=== PATIENT | male | born 1995 | race Caucasian/White ===

== ENCOUNTER 2023-09-21 15:23 | Emergency (ER) | payer OTHER ==
[~2023-09-21] VITALS: Ht 157.5 cm; Wt 86.4 kg
[2023-09-21] MEDS ORDERED: MIRT1TAB16 PO (15:39)
[2023-09-21] MEDS ORDERED: QUET150T14 PO (15:39)
[2023-09-21] MEDS ORDERED: BANO25TA PO (15:39)
[2023-09-21] MEDS ORDERED: PROP10TA56 PO (15:39)
[2023-09-21] MEDS ORDERED: ESCI5SOL3 PO (15:39)
[2023-09-21] MEDS: KETOROLAC 60MG 2ML VIAL IM ONE (17:09)
[2023-09-21] MEDS: LIDOCAINE 5% (LIDODERM) PATCH TD ONE (17:09)
[2023-09-21] MEDS ORDERED: KETO10TAB PO (19:42)
[2023-09-21] MEDS ORDERED: LIDO5DIS41 TOP (19:42)
[2023-09-21 20:15] VITALS: BP 144/78; TEMP 97.3; O2SAT 96
== END 2023-09-21 20:19 | disposition home or self-care (01) ==
LOC: M ED 15:23
DX: M54.50 Low back pain, unspecified (principal); E11.9 Type 2 diabetes mellitus without complications; F17.210 Nicotine dependence, cigarettes, uncomplicated; F15.10 Other stimulant abuse, uncomplicated; Z88.0 Allergy status to penicillin; Z79.899 Other long term (current) drug therapy
CPT/HCPCS: 72110; 96372; 99283; J1885

== ENCOUNTER 2023-09-22 10:59 | Emergency (ER) | payer OTHER ==
[~2023-09-22] VITALS: Ht 177.8 cm; Wt 81.8 kg
[~2023-09-22 10:59] MED LIST: BANO25TA PO; ESCI5SOL3 PO; KETO10TAB PO; LIDO5DIS41 TOP; MIRT1TAB16 PO; PROP10TA56 PO; QUET150T14 PO
[2023-09-22] MEDS: NS 1,000 ML IV ONE (13:39)
[2023-09-22 14:44] LABS: BASO % 0.6 % (0.0-1.0); EOS # 0.2 10^3/uL (0.0-0.5); EOS % 4.8 % (0.0-3.0); HEMOGLOBIN 11.4 g/dl (13.5-17.5); LYMPH # 1.3 10^3/uL (1.5-5.0); LYMPH % 39.3 % (24.0-44.0); MEAN CORPUSCULAR HGB CONC 33.5 g/dl (32.0-36.5); MEAN CORPUSCULAR VOLUME 92.4 fl (80.0-96.0); MONO # 0.3 10^3/uL (0.0-0.8); MONO % 9.8 % (2.0-8.0); NEUTROPHILS # 1.5 10^3/uL (1.5-8.5); NEUTROPHILS % 45.5 % (36.0-66.0); RED BLOOD COUNT 3.68 10^6/uL (4.30-6.10); WHITE BLOOD COUNT 3.4 10^3/uL (4.0-10.0)
[2023-09-22 14:57] LABS: PLATELET COUNT, AUTOMATED 93 10^3/uL (150-450)
[2023-09-22 15:17] LABS: ALBUMIN 2.3 G/DL (3.2-5.2); ALKALINE PHOSPHATASE 200 U/L (46-116); ALT/SGPT 268 U/L (7.0-40); AST/SGOT 446 U/L (<34); BILIRUBIN,DIRECT 0.7 MG/DL (<0.4); BILIRUBIN,TOTAL 1.3 MG/DL (0.3-1.2); BLOOD UREA NITROGEN 15 MG/DL (9-23); CALCIUM LEVEL 7.6 MG/DL (8.5-10.1); CARBON DIOXIDE LEVEL 29 MMOL/L (20-31); CHLORIDE LEVEL 107 MMOL/L (98-107); CK-MB VALUE MASS 2.7 NG/ML (<3.6); CREATININE FOR GFR 0.59 MG/DL (0.70-1.30); GLOMERULAR FILTRATION RATE > 60.0 (>60); GLUCOSE, FASTING 99 MG/DL (60-100); POTASSIUM SERUM 4.5 MMOL/L (3.5-5.1); SODIUM LEVEL 140 MMOL/L (136-145); TOTAL PROTEIN 6.2 G/DL (5.7-8.2)
[2023-09-22 15:29] LABS: ETHYL ALCOHOL (ETHANOL) 0.003 % (0.000-0.010)
[2023-09-22 15:31] LABS: CPK CREATINE PHOSPHOKINASE 301 U/L (46-171); MB/CK RELATIVE INDEX 0.89 (< OR =4)
[2023-09-22 16:03] LABS: BARBITURATES URINE NEGATIVE (NEGATIVE); BENZODIAZEPINES URINE NEGATIVE (NEGATIVE); COCAINE METABOLITE URINE NEGATIVE (NEGATIVE); METHADONE URINE NEGATIVE (NEGATIVE); OPIATES URINE NEGATIVE (NEGATIVE); PHENCYCLIDINE URINE NEGATIVE (NEGATIVE)
[2023-09-22 16:04] LABS: AMPHETAMINES LEVEL URINE POSITIVE (NEGATIVE); CANNABINOIDS URINE POSITIVE (NEGATIVE)
[2023-09-22] MEDS: PANTOPRAZOLE 40MG VIAL IV ONE (16:16)
[2023-09-22 16:49] LABS: INR 1.39; PROTHROMBIN TIME 16.7 SECONDS (12.5-14.5)
[2023-09-22 16:50] LABS: PARTIAL THROMBOPLASTIN TIME 39.5 SECONDS (24.8-34.2)
[2023-09-22 17:18] VITALS: BP 126/68; TEMP 98.1; O2SAT 94
== END 2023-09-22 17:25 | disposition short-term general hospital (02) ==
LOC: M ED 10:59 → EDBD 10:59 → M ED 17:25
DX: F19.10 Other psychoactive substance abuse, uncomplicated (principal); Z88.0 Allergy status to penicillin; I45.81 Long QT syndrome; Z79.899 Other long term (current) drug therapy; Z79.2 Long term (current) use of antibiotics
CPT/HCPCS: 71045; 80048; 80076; 80307; 82077; 82550; 82553; 83690; 85025; 85049; 85055; 85610; 85730; 93005; 93041; 94760; 96374; 99285; C9113

== ENCOUNTER 2023-11-22 09:02 | Inpatient (IN) | payer OTHER ==
[~2023-11-22] VITALS: Ht 177.8 cm; Wt 90.8 kg
[2023-11-22 10:11] LABS: BASO % 0.3 % (0.0-1.0); EOS # 0.1 10^3/uL (0.0-0.5); EOS % 2.1 % (0.0-3.0); HEMATOCRIT 36.8 % (42.0-52.0); HEMOGLOBIN 12.3 g/dl (13.5-17.5); LYMPH # 1.2 10^3/uL (1.5-5.0); LYMPH % 18.7 % (24.0-44.0); MEAN CORPUSCULAR HEMOGLOBIN 30.6 pg (27.0-33.0); MEAN CORPUSCULAR HGB CONC 33.4 g/dl (32.0-36.5); MEAN CORPUSCULAR VOLUME 91.5 fl (80.0-96.0); MONO # 0.6 10^3/uL (0.0-0.8); MONO % 9.2 % (2.0-8.0); NEUTROPHILS # 4.4 10^3/uL (1.5-8.5); NEUTROPHILS % 69.4 % (36.0-66.0); RED BLOOD COUNT 4.02 10^6/uL (4.30-6.10); WHITE BLOOD COUNT 6.3 10^3/uL (4.0-10.0)
[2023-11-22 10:41] LABS: ETHYL ALCOHOL (ETHANOL) < 0.003 % (0.000-0.010)
[2023-11-22 10:42] LABS: ALBUMIN 2.8 G/DL (3.2-5.2); ALKALINE PHOSPHATASE 157 U/L (46-116); ALT/SGPT 114 U/L (7.0-40); AST/SGOT 260 U/L (<34); BILIRUBIN,DIRECT 0.8 MG/DL (<0.4); BILIRUBIN,TOTAL 1.4 MG/DL (0.3-1.2); BLOOD UREA NITROGEN 13 MG/DL (9-23); CALCIUM LEVEL 8.2 MG/DL (8.5-10.1); CARBON DIOXIDE LEVEL 29 MMOL/L (20-31); CHLORIDE LEVEL 102 MMOL/L (98-107); CREATININE FOR GFR 0.53 MG/DL (0.70-1.30); GLOMERULAR FILTRATION RATE > 60.0 (>60); GLUCOSE, FASTING 125 MG/DL (60-100); POTASSIUM SERUM 3.5 MMOL/L (3.5-5.1); SALICYLATE LEVEL < 3.0 MG/DL (<30); SODIUM LEVEL 133 MMOL/L (136-145); TOTAL PROTEIN 6.6 G/DL (5.7-8.2)
[2023-11-22 10:45] LABS: THYROID STIMULATING HORMONE 0.522 uIU/ML (0.55-4.78)
[2023-11-22 10:48] LABS: PLATELET COUNT, AUTOMATED 78 10^3/uL (150-450)
[2023-11-22 10:59] LABS: CPK CREATINE PHOSPHOKINASE 1981 U/L (46-171)
[2023-11-22] MEDS: NALOXONE INJ 0.4MG/1ML VIAL IV STA ×2 (11:27→11:57)
[2023-11-22 13:15] LABS: BARBITURATES URINE NEGATIVE (NEGATIVE); BENZODIAZEPINES URINE NEGATIVE (NEGATIVE); COCAINE METABOLITE URINE NEGATIVE (NEGATIVE); METHADONE URINE NEGATIVE (NEGATIVE); OPIATES URINE NEGATIVE (NEGATIVE); PHENCYCLIDINE URINE NEGATIVE (NEGATIVE)
[2023-11-22 13:18] LABS: AMPHETAMINES LEVEL URINE POSITIVE (NEGATIVE); CANNABINOIDS URINE POSITIVE (NEGATIVE)
[2023-11-22] MEDS: NS 1,000 ML IV ONE ×3 (13:47→16:41)
[2023-11-22 14:11] LABS: INR 1.33; PROTHROMBIN TIME 16.1 SECONDS (12.5-14.5)
[2023-11-22 15:19] LABS: ABG BASE EXCESS -0.5 (-2.0-2.0); ABG HCO3 25.1 MMOL/L (22.0-26.0); ABG O2 SATURATION 96.6 % (95.0-99.0); ABG PARTIAL PRESSURE CO2 44.7 mmHg (35.0-45.0); ABG PARTIAL PRESSURE O2 85.8 mmHg (75.0-100.0); ABG STANDARD HCO3 24.1 MMOL/L. (22.0-26.0); ABG TOTAL CO2 26.5 MMOL/L (22.0-29.0); ABG pH (ARTERIAL) 7.367 UNITS (7.350-7.450)
[2023-11-22 16:25] LABS: MONO SCRN NEGATIVE (NEGATIVE)
[2023-11-22] MEDS: ceFAZolin SOD 1 GM in D5W MINI-BAG PLUS 50 ML IV SCH (16:42)
[2023-11-22] MEDS: NS 1,000 ML IV SCH (17:54)
[2023-11-22] MEDS ORDERED: MED REC CURRENTLY UNOBTAINABLE XX SCH (20:00)
[2023-11-23 09:52] LABS: BASO % 0.5 % (0.0-1.0); EOS # 0.2 10^3/uL (0.0-0.5); EOS % 3.8 % (0.0-3.0); HEMATOCRIT 34.5 % (42.0-52.0); HEMOGLOBIN 11.5 g/dl (13.5-17.5); LYMPH # 1.3 10^3/uL (1.5-5.0); LYMPH % 30.1 % (24.0-44.0); MEAN CORPUSCULAR HEMOGLOBIN 30.7 pg (27.0-33.0); MEAN CORPUSCULAR HGB CONC 33.3 g/dl (32.0-36.5); MONO # 0.3 10^3/uL (0.0-0.8); MONO % 7.2 % (2.0-8.0); NEUTROPHILS # 2.4 10^3/uL (1.5-8.5); NEUTROPHILS % 58.2 % (36.0-66.0); RED BLOOD COUNT 3.75 10^6/uL (4.30-6.10); WHITE BLOOD COUNT 4.2 10^3/uL (4.0-10.0)
[2023-11-23 09:56] LABS: PLATELET COUNT, AUTOMATED 78 10^3/uL (150-450)
[2023-11-23 10:10] LABS: BLOOD UREA NITROGEN 7 MG/DL (9-23); CALCIUM LEVEL 7.4 MG/DL (8.5-10.1); CARBON DIOXIDE LEVEL 27 MMOL/L (20-31); CHLORIDE LEVEL 110 MMOL/L (98-107); CK-MB VALUE MASS 7.4 NG/ML (<3.6); CREATININE FOR GFR 0.51 MG/DL (0.70-1.30); GLOMERULAR FILTRATION RATE > 60.0 (>60); GLUCOSE, FASTING 185 MG/DL (60-100); SODIUM LEVEL 141 MMOL/L (136-145)
[2023-11-23 10:16] LABS: ALBUMIN 2.1 G/DL (3.2-5.2); BILIRUBIN,DIRECT 0.6 MG/DL (<0.4); BILIRUBIN,TOTAL 0.9 MG/DL (0.3-1.2); MB/CK RELATIVE INDEX 1.49 (< OR =4); TOTAL PROTEIN 5.5 G/DL (5.7-8.2)
[2023-11-23 14:00] VITALS: BP 128/77; TEMP 97.9; O2SAT 96
[2023-11-23] MEDS ORDERED: MAVY1TAB PO (21:07)
[2023-11-23] MEDS ORDERED: NARC1SPR NARES (21:07)
[2023-11-23] MEDS ORDERED: NICO1DIS12 TD (21:07)
[2023-11-23] MEDS ORDERED: PALI1TAB2 PO (21:07)
[2023-11-23] MEDS ORDERED: LEXA1TAB PO (21:07)
[2023-11-23] MEDS ORDERED: INVE234I IM (21:07)
[2023-11-23] MEDS ORDERED: LEXA5TAB13 PO (21:07)
[2023-11-23] MEDS ORDERED: QUET100T2 PO (21:07)
[2023-11-23] MEDS ORDERED: MIRT-84 PO (21:07)
[2023-11-23] MEDS ORDERED: GABA-282 PO (21:07)
[2023-11-23] MEDS ORDERED: ADDE10TA PO (21:07)
[2023-11-23] MEDS ORDERED: HOME MED LIST COMPLETE! XX SCH (21:10)
[2023-11-23 21:14] VITALS: BP 128/60; TEMP 97.9; O2SAT 97
[2023-11-24 06:14] VITALS: BP 118/58; TEMP 97.7; O2SAT 94
[2023-11-24] MEDS ORDERED: BACT400T PO (10:39)
[2023-11-24 14:00] VITALS: BP 118/58; TEMP 97.7; O2SAT 98
[2023-11-24 22:00] VITALS: BP 117/58; TEMP 97.3; O2SAT 96
[2023-11-25 06:00] VITALS: BP 129/86; TEMP 97.3; O2SAT 96
[2023-11-25] MEDS ORDERED: HALO1TAB19 PO (17:48)
[2023-11-25] MEDS ORDERED: PANT40TA29 PO (17:48)
[2023-11-25] MEDS ORDERED: TRAZ-252 PO (17:54)
[2023-11-25] MEDS ORDERED: XIFA550T PO (17:54)
[2023-11-25] MEDS ORDERED: med (17:56)
== END 2023-11-25 10:26 | disposition home or self-care (01) | DRG 812 ==
LOC: EDBD 09:02 → M ED 11:33 → EDBEDREQSVC 15:02 → M ED INP 15:08 → M MS5PR 11-23 11:00
PROVIDERS: ADMIT General Practice; ATTEND Hospitalist
DX: T50.901A Poisoning by unspecified drugs, medicaments and biological substances, accidental (unintentional), initial encounter (principal); G92.9 Unspecified toxic encephalopathy; L03.115 Cellulitis of right lower limb; M62.82 Rhabdomyolysis; E87.1 Hypo-osmolality and hyponatremia; L03.116 Cellulitis of left lower limb; Z59.00 Homelessness unspecified; F32.A Depression, unspecified; E80.6 Other disorders of bilirubin metabolism; R74.01 Elevation of levels of liver transaminase levels; Z56.0 Unemployment, unspecified; Z79.899 Other long term (current) drug therapy; Z88.0 Allergy status to penicillin

== ENCOUNTER 2023-11-25 13:49 | Inpatient (IN) | payer OTHER ==
[~2023-11-25] VITALS: Ht 177.8 cm; Wt 84.2 kg
[~2023-11-25 13:49] MED LIST changes: +ADDE10TA PO; +BACT400T PO; +GABA-282 PO; +INVE234I IM; +LEXA1TAB PO; +LEXA5TAB13 PO; +MAVY1TAB PO; +MIRT-84 PO; +NARC1SPR NARES; +NICO1DIS12 TD; +PALI1TAB2 PO; +QUET100T2 PO
[2023-11-25 14:47] LABS: HEMATOCRIT 40.7 % (42.0-52.0); HEMOGLOBIN 13.4 g/dl (13.5-17.5); MEAN CORPUSCULAR HEMOGLOBIN 30.3 pg (27.0-33.0); MEAN CORPUSCULAR HGB CONC 32.9 g/dl (32.0-36.5); MEAN CORPUSCULAR VOLUME 92.1 fl (80.0-96.0); RED BLOOD COUNT 4.42 10^6/uL (4.30-6.10); WHITE BLOOD COUNT 3.2 10^3/uL (4.0-10.0)
[2023-11-25 14:49] LABS: PLATELET COUNT, AUTOMATED 95 10^3/uL (150-450)
[2023-11-25 15:07] LABS: AMPHETAMINES LEVEL URINE NEGATIVE (NEGATIVE); BARBITURATES URINE NEGATIVE (NEGATIVE)
[2023-11-25 15:08] LABS: BENZODIAZEPINES URINE NEGATIVE (NEGATIVE); COCAINE METABOLITE URINE NEGATIVE (NEGATIVE); METHADONE URINE NEGATIVE (NEGATIVE); OPIATES URINE NEGATIVE (NEGATIVE); PHENCYCLIDINE URINE NEGATIVE (NEGATIVE)
[2023-11-25 15:09] LABS: CANNABINOIDS URINE POSITIVE (NEGATIVE)
[2023-11-25 15:14] LABS: ETHYL ALCOHOL (ETHANOL) < 0.003 % (0.000-0.010)
[2023-11-25 15:16] LABS: SALICYLATE LEVEL < 3.0 MG/DL (<30)
[2023-11-25 15:18] LABS: THYROID STIMULATING HORMONE 0.345 uIU/ML (0.55-4.78)
[2023-11-25 15:20] LABS: ALBUMIN 2.6 G/DL (3.2-5.2); ALKALINE PHOSPHATASE 136 U/L (46-116); ALT/SGPT 85 U/L (7.0-40); AST/SGOT 146 U/L (<34); BILIRUBIN,DIRECT 0.4 MG/DL (<0.4); BILIRUBIN,TOTAL 0.6 MG/DL (0.3-1.2); BLOOD UREA NITROGEN 9 MG/DL (9-23); CALCIUM LEVEL 7.8 MG/DL (8.5-10.1); CARBON DIOXIDE LEVEL 23 MMOL/L (20-31); CHLORIDE LEVEL 106 MMOL/L (98-107); CREATININE FOR GFR 0.51 MG/DL (0.70-1.30); GLOMERULAR FILTRATION RATE > 60.0 (>60); GLUCOSE, FASTING 141 MG/DL (60-100); POTASSIUM SERUM 4.6 MMOL/L (3.5-5.1); SODIUM LEVEL 138 MMOL/L (136-145); TOTAL PROTEIN 6.3 G/DL (5.7-8.2)
[2023-11-25] MEDS ORDERED: HALO1TAB19 PO (17:48)
[2023-11-25] MEDS ORDERED: PANT40TA29 PO (17:48)
[2023-11-25] MEDS ORDERED: XIFA550T PO (17:54)
[2023-11-25] MEDS ORDERED: TRAZ-252 PO (17:54)
[2023-11-25] MEDS ORDERED: med (17:56)
[2023-11-25] MEDS ORDERED: HOME MED LIST COMPLETE! XX SCH (18:00)
[2023-11-26] MEDS ORDERED: MAALOX 30 ML SUSP *UDC PO PRN (17:25)
[2023-11-26] MEDS ORDERED: MOM 30ML SUSPENSION UDC PO PRN (17:25)
[2023-11-26] MEDS ORDERED: diphenhydrAMINE 25MG CAP PO PRN (17:25)
[2023-11-26 22:29] VITALS: BP 122/67; TEMP 98.6; O2SAT 98
[2023-11-27 06:37] VITALS: BP 119/73; TEMP 97.7; O2SAT 99
[2023-11-27] MEDS: MAVYRET PO SCH (08:00)
[2023-11-27] MEDS: PROPRANOLOL 10 MG TAB PO SCH (10:08)
[2023-11-27] MEDS: ESCITALOPRAM OXALATE 10 MG TAB (LEXAPRO) PO SCH (10:08)
[2023-11-27] MEDS: PANTOPRAZOLE 40MG TAB (PROTONIX) PO SCH (10:08)
[2023-11-27] MEDS: GABAPENTIN 300 MG CAP PO SCH (10:08)
[2023-11-27] MEDS: NICOTINE 21MG/24HR 1 EA TRANSDERMAL TD SCH (10:09)
[2023-11-27] MEDS: rifAXIMin 550 MG TAB (XIFAXAN) PO SCH (10:35)
[2023-11-27 11:37] LABS: HEMATOCRIT 42.1 % (42.0-52.0); HEMOGLOBIN 14.4 g/dl (13.5-17.5); MEAN CORPUSCULAR HEMOGLOBIN 30.1 pg (27.0-33.0); MEAN CORPUSCULAR HGB CONC 34.2 g/dl (32.0-36.5); MEAN CORPUSCULAR VOLUME 88.1 fl (80.0-96.0); PLATELET COUNT, AUTOMATED 127 10^3/uL (150-450); RED BLOOD COUNT 4.78 10^6/uL (4.30-6.10); WHITE BLOOD COUNT 5.7 10^3/uL (4.0-10.0)
[2023-11-27 12:07] LABS: BLOOD UREA NITROGEN 12 MG/DL (9-23); CALCIUM LEVEL 8.6 MG/DL (8.5-10.1); CARBON DIOXIDE LEVEL 27 MMOL/L (20-31); CHLORIDE LEVEL 104 MMOL/L (98-107); CREATININE FOR GFR 0.51 MG/DL (0.70-1.30); GLOMERULAR FILTRATION RATE > 60.0 (>60); GLUCOSE, FASTING 109 MG/DL (60-100); POTASSIUM SERUM 4.2 MMOL/L (3.5-5.1); SODIUM LEVEL 137 MMOL/L (136-145)
[2023-11-27 15:55] VITALS: BP_SYST 136; BP_SYST 143; BP_DIAS 86; BP_DIAS 88; TEMP 97; TEMP 97.1; O2SAT 99
[2023-11-27] MEDS: ACETAMINOPHEN TAB 650MG DOSE (2X325MG) PO PRN (19:30)
[2023-11-27] MEDS: traZODone 50 MG TAB PO PRN (20:12)
[2023-11-27] MEDS: PALIPERIDONE 3MG ER TAB (INVEGA) PO SCH (20:12)
[2023-11-28 05:47] VITALS: BP 128/68; TEMP 97.1; O2SAT 97
[2023-11-28] MEDS: GABAPENTIN 300 MG CAP PO SCH (15:35)
[2023-11-28 16:23] VITALS: BP 119/77; TEMP 98; O2SAT 97
[2023-11-29 06:38] VITALS: BP 117/57; TEMP 97.6; O2SAT 99
[2023-11-29 16:15] VITALS: BP 128/78; TEMP 98.5; O2SAT 97
[2023-11-29] MEDS: PROPRANOLOL 20 MG TAB PO SCH (21:00)
[2023-11-30 06:24] VITALS: BP 127/69; TEMP 98; O2SAT 99
[2023-11-30 16:14] VITALS: BP 125/78; TEMP 98.2; O2SAT 99
[2023-11-30 20:13] VITALS: BP 136/86
[2023-12-01 06:22] VITALS: BP 115/65; TEMP 97.3; O2SAT 97
[2023-12-01] MEDS: PALIPERIDONE 6MG ER TAB (INVEGA) PO SCH (09:06)
[2023-12-01 17:27] VITALS: BP 135/78; TEMP 97.2; O2SAT 98
[2023-12-01 18:18] LABS: HIV 1&2 SCREEN NEGATIVE (NEGATIVE)
[2023-12-02 06:16] VITALS: BP 135/79; TEMP 97.9; O2SAT 97
[2023-12-02] MEDS: PALIPERIDONE PAL 234MG/1.5ML INJ (INVEGA)(FREE PSY INPT ONLY) IM ONE (08:48)
[2023-12-02] MEDS ORDERED: PALIPERIDONE PAL 234MG/1.5ML INJ (INVEGA)(FREE PSY INPT ONLY) IM SCH (09:00)
[2023-12-02] MEDS: IBUPROFEN 400MG TAB PO PRN (15:37)
[2023-12-02 17:33] VITALS: BP 131/79; TEMP 97.2; O2SAT 99
[2023-12-03 06:17] VITALS: BP 127/74; TEMP 98.2; O2SAT 98
[2023-12-03 17:13] VITALS: BP 134/76; TEMP 97.8; O2SAT 100
[2023-12-04 06:24] VITALS: BP 117/67; TEMP 98.1; O2SAT 97
[2023-12-04 16:49] VITALS: BP 137/82; TEMP 97.4; O2SAT 100
[2023-12-05 06:12] VITALS: BP 115/59; TEMP 98.1; O2SAT 96
[2023-12-05 16:29] VITALS: BP 122/70; TEMP 97.9; O2SAT 100
[2023-12-05] MEDS: hydrOXYzine 50 MG TAB PO SCH (22:02)
[2023-12-05 22:08] VITALS: BP 133/61
[2023-12-06 06:14] VITALS: BP 118/64; TEMP 98; O2SAT 96
[2023-12-06 09:08] LABS: HEPATITIS A IgG TOTAL Positive (Negative); HEPATITIS B CORE ANTIBODY IGG Negative (Negative); HEPATITIS C QUANTITATION HCV Not Detected IU/mL (.)
[2023-12-06 14:21] VITALS: BP 130/79; TEMP 97.8; O2SAT 100
[2023-12-07 06:21] VITALS: BP 121/66; TEMP 98; O2SAT 100
[2023-12-07 16:06] VITALS: BP 129/74; TEMP 97.9; O2SAT 100
[2023-12-08 06:12] VITALS: BP 120/70; TEMP 97.9; O2SAT 98
[2023-12-08 08:32] VITALS: BP 125/83
[2023-12-08] MEDS ORDERED: LEXA1TAB PO (10:11)
[2023-12-08] MEDS ORDERED: MAVY1TAB PO (10:11)
[2023-12-08] MEDS ORDERED: PANT40TA29 PO (10:11)
[2023-12-08] MEDS ORDERED: INVE234I IM (10:11)
[2023-12-08] MEDS ORDERED: LEXA5TAB13 PO (10:11)
[2023-12-08] MEDS ORDERED: HYDR50TA70 PO (10:11)
[2023-12-08] MEDS ORDERED: XIFA550T PO (10:11)
[2023-12-08] MEDS ORDERED: TRAZ-252 PO (10:11)
[2023-12-08] MEDS ORDERED: GABA600T4 PO (10:11)
[2023-12-08] MEDS ORDERED: NICO1DIS12 TD (10:11)
[2023-12-08 17:20] VITALS: BP 144/75; TEMP 98.3; O2SAT 100
[2023-12-09 06:12] VITALS: BP 137/90; TEMP 97.7; O2SAT 98
[2023-12-09 07:42] VITALS: BP 131/75
== END 2023-12-09 08:05 | DRG 750 ==
LOC: M ED 13:49 → M ED INP 11-26 17:22 → M PSY 11-26 22:26
PROVIDERS: ADMIT Psychiatry & Neurology Psychiatry; ATTEND Student in an Organized Health Care Education/Training Program
DX: F25.1 Schizoaffective disorder, depressive type (principal); F15.90 Other stimulant use, unspecified, uncomplicated; F17.210 Nicotine dependence, cigarettes, uncomplicated; F12.90 Cannabis use, unspecified, uncomplicated; F11.90 Opioid use, unspecified, uncomplicated; F43.10 Post-traumatic stress disorder, unspecified; F41.9 Anxiety disorder, unspecified; K73.9 Chronic hepatitis, unspecified; E11.42 Type 2 diabetes mellitus with diabetic polyneuropathy; Z79.899 Other long term (current) drug therapy; Z88.0 Allergy status to penicillin; Z11.52 Encounter for screening for COVID-19; Z59.00 Homelessness unspecified; Z56.0 Unemployment, unspecified; Z81.8 Family history of other mental and behavioral disorders; Z91.51 Personal history of suicidal behavior